=== PATIENT | female | born 2000 | race African-American/Black ===

== ENCOUNTER 2023-10-09 21:46 | Emergency (ER) | payer OTHER ==
[~2023-10-09] VITALS: Ht 157.5 cm; Wt 102.1 kg
[2023-10-09] MEDS ORDERED: KETOROLAC TROMETHAMINE 15 MG/ML VIAL ONE (22:54)
[2023-10-09] MEDS ORDERED: CYCLOBENZAPRINE 10 MG TABLET ONE (22:54)
[2023-10-09] MEDS: KETOROLAC TROMETHAMINE 15 MG/ML VIAL IM ONE (22:56)
[2023-10-09] MEDS: CYCLOBENZAPRINE 10 MG TABLET PO ONE (22:56)
[2023-10-09] MEDS: LIDOCAINE 5% (PATCH) 1 EA PATCH TP ONE (23:38)
[2023-10-09] MEDS ORDERED: LIDOCAINE 5% (PATCH) 1 EA PATCH TP ONE (23:38)
[2023-10-09] MEDS ORDERED: IBUP-1955 PO (23:52)
[2023-10-09] MEDS ORDERED: ACET-2605 PO (23:52)
[2023-10-09] MEDS ORDERED: CYCL5TAB PO (23:52)
[2023-10-10 00:01] VITALS: BP 126/80; TEMP 98; O2SAT 98
[2023-10-10] MEDS ORDERED: CYCL5TAB PO (11:32)
== END 2023-10-10 00:02 | disposition home or self-care (01) ==
LOC: ER 21:52
DX: M54.50 Low back pain, unspecified (principal); M79.641 Pain in right hand; M79.645 Pain in left finger(s); Z79.899 Other long term (current) drug therapy; V49.9XXA Car occupant (driver) (passenger) injured in unspecified traffic accident, initial encounter; Y93.89 Activity, other specified; Y92.89 Other specified places as the place of occurrence of the external cause; Y99.8 Other external cause status
CPT/HCPCS: 99284; 96372; 73130; 73140; J1885